=== PATIENT | female | born 2000 | race African-American/Black ===

== ENCOUNTER 2020-05-10 13:57 | Emergency (ER) | payer OTHER ==
--- NOTE | 2020-05-10 14:08 | ER Document Report ---
ED Medical Screen (RME) - General Chief Complaint: Shortness Of Breath Stated Complaint: SHORTNESS OF BREATH Time Seen by Provider: 05/10/20 13:59 - HPI Notes: 05/10/20 14:07 I performed a brief medical screening exam on the patient determined that the patient needs further evaluation and management by main side provider. I have placed initial orders to help expedite care.
[2020-05-10] MEDS ORDERED: IPRATROPIUM/ALBUTEROL 0.5-2.5 MG/3 ML AMPUL NEB ONE ×2 (14:10→18:17)
[2020-05-10] MEDS ORDERED: PREDNISONE 20 MG TABLET PO ONE (14:10)
[2020-05-10] MEDS ORDERED: DEXAMETHASONE SOD PHOS INJ 10 MG/1 ML VIAL IV ONE (18:07)
--- NOTE | 2020-05-10 18:16 | ER Document Report ---
ED Medical Screen (RME) - General Chief Complaint: Shortness Of Breath Stated Complaint: SHORTNESS OF BREATH Time Seen by Provider: 05/10/20 13:59 Mode of Arrival: Ambulatory Information source: Patient, Parent Notes: ED Medical Screen ([facility] notes - General Chief Complaint: Shortness Of Breath Stated Complaint: SHORTNESS OF BREATH Time Seen by Provider: 05/10/20 13:59 - HPI Notes: 05/10/20 14:12 patient with history of asthma with c/o SOB and wheezing today. She also reports nasal congestion from allergies from dog. Does admit to recent travel from [place]. Uses symbicort and albuterol at home. Does not have a nebulizer here. Denies fevers, chills, headache, body aches. Denies being around anyone with COVID 19. History of hosptilization as a young child for her asthma. No hx of intubation. non smoker. MY NOTES 19-year-old black female arrives with mother and father chief complaint of shortness of breath and wheezing with asthmatic exacerbation. Patient also has rhinorrhea from dog dander. Patient just traveled from [place]. She is on Symbicort and uses albuterol handheld nebulizer and has a history of using a nebulizer but has no Nebules. She denies any sore throat but does have tonsillar enlargement. She is wheezing with full sentences on speech. She denies any mopped assist denies any productive cough. She denies any trauma or abuse fever chills coronavirus symptoms. TRAVEL OUTSIDE OF THE [place] IN LAST 30 DAYS: No - HPI Onset: This morning Onset/Duration: Sudden, Persistent Quality of pain: No pain Severity: Mild Pain Level: 1 Associated Symptoms: Shortness of breath Exacerbated by: Coughing, Deep breathing Relieved by: Denies Similar symptoms previously: Yes Recently seen / treated by doctor: No - Related Data Smoking: Non-smoker Frequency of alcohol use: None Drug Abuse: None Allergies/Adverse Reactions: No Known Allergies Allergy (Verified 05/10/20 14:11) Past Medical History - General Information source: Patient, Parent - Social History Cigarette use (# per day): No Chew tobacco use (# tins/day): No Frequency of alcohol use: None Drug Abuse: None Lives with: Family Family history: Reviewed & Not Pertinent Review of Systems - Review of Systems Constitutional: No symptoms reported EENT: No symptoms reported Cardiovascular: See HPI, Lightheaded Respiratory: See HPI, Cough, Wheezing Gastrointestinal: No symptoms reported Genitourinary: No symptoms reported Female Genitourinary: No symptoms reported Musculoskeletal: No symptoms reported Skin: No symptoms reported Hematologic/Lymphatic: No symptoms reported Neurological/Psychological: No symptoms reported Physical Exam - Vital signs Vitals: Temp Pulse Resp BP Pulse Ox 97.4 F 90 19 124/86 H 100 05/10/20 14:03 05/10/20 14:03 05/10/20 14:03 05/10/20 14:03 05/10/20 14:03 Interpretation: Hypertensive, Tachypneic - General General appearance: Alert - HEENT Head: Normocephalic, Atraumatic Eyes: Normal Pupils: PERRL Nasal: Normal Mouth/Lips: Normal Mucous membranes: Normal Pharynx: Normal Neck: Normal - Respiratory Respiratory status: No respiratory distress Chest status: Nontender Breath sounds: Wheezing Chest palpation: Normal - Cardiovascular Rhythm: Regular Heart sounds: Normal auscultation Murmur: No - Abdominal Inspection: Normal Distension: No distension Bowel sounds: Normal Tenderness: Nontender Organomegaly: No organomegaly - Rectal Hemorrhoids: Other - deferred - Genitourinary [place] exam: Other - deferred - Back Back: Normal - Extremities General upper extremity: Normal inspection General lower extremity: Normal inspection - Neurological Neuro grossly intact: Yes Cognition: Normal Orientation: AAOx4 [place] Coma Scale Eye Opening: Spontaneous [place] Coma Scale Verbal: Oriented [place] Coma Scale Motor: Obeys Commands [place] Coma Scale Total: 15 Speech: Normal Motor strength normal: LUE, RUE, LLE, RLE Sensory: Normal - Psychological Associated symptoms: Normal affect - Skin Skin Temperature: Warm Skin Moisture: Dry Course - Vital Signs Vital signs: Temp Pulse Resp BP Pulse Ox 97.4 F 90 19 124/86 H 100 05/10/20 14:03 05/10/20 14:03 05/10/20 14:03 05/10/20 14:03 05/10/20 14:03 Critical Care Note - Critical Care Note Comments: Patient received Decadron 4 mg IM as well as breathing treatment Doctor's Discharge - Discharge Clinical Impression: Asthmatic bronchitis Qualifiers: Asthma severity: moderate Asthma persistence: persistent Asthma complication type: with acute exacerbation Qualified Code(s): J45.41 - Moderate persistent asthma with (acute) exacerbation Condition: Good Additional Instructions: Follow-up with personal doctor this week return to ER as needed take medicines as directed encourage fluids Prescriptions: Prednisone [Deltasone 20 mg Tablet] 1 tab PO DAILY 5 Days #5 tablet Albuterol Sulfate [Proair HFA Inhalation Aerosol 8.5 gm MDI] 2 puff IH Q4H PRN #1 mdi PRN Reason: Albuterol Sulfate [Ventolin 0.083% Neb 2.5 mg/3 mL Ampul] 1 vial NEB Q4 PRN #1 pkt PRN Reason: wheezing Azithromycin [Zithromax 250 mg Tablet] 250 mg PO ASDIR PRN #6 tablet PRN Reason:
[2020-05-10] MEDS ORDERED: PREDNISONE 20 MG TABLET ONE (18:17)
[2020-05-10] MEDS ORDERED: DEXAMETHASONE SOD PHOS INJ 10 MG/1 ML VIAL IM ONE (18:25)
[2020-05-10 18:57] VITALS: BP 123/84
== END 2020-05-10 18:55 | disposition home or self-care (01) ==
LOC: ER 13:57
DX: J45.41 Moderate persistent asthma with (acute) exacerbation (principal); R06.02 Shortness of breath; R09.81 Nasal congestion; J34.89 Other specified disorders of nose and nasal sinuses; R05 Cough; R42 Dizziness and giddiness
CPT/HCPCS: 94640; 99284; 96372; J7512; J1100